=== PATIENT | female | born 1985 | race Caucasian/White ===

== ENCOUNTER 2018-07-11 07:46 | Emergency (ER) | payer OTHER ==
--- OUTSIDE RECORDS SUMMARY | 2018-07-11 07:53 | XMS REPORT | Continuity of Care Document ---
:1985 External Reference #:[id number] Author Name Kajal Luque M.D. Address [address] [place] [address] Care Team Providers Name Role Phone Kajal Luque M.D. Care Team Information Fine Hairer Unavailable Kajal Luque M.D. Primary Care Physician Unavailable Payers Date Identification Numbers Payment Provider Subscriber Effective: 2016 Policy Number: [id number] [place] [employer] Mervat Camacho Group Number: [id number] [address] PayID: [id number] [place] [address] Advance Directives Description No Information Available Problems Date Description Provider Status Onset: 07/05/2018 Allergic rhinitis due to pollen Kjaal Luque M.D. 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 needed Montelukast Active Tablets 10mg 30tabs take one Z00.00 Kajal Sodium 019 tablet by [place], mouth at M.D. bedtime Proair HFA Hx Aerosol 108(90Base) 8.500g 2 puffs R05 Kajal 019 - mcg/Act m every 4-6 [place], hours as M.D. 019 needed for cough No Active Hx Unknown Medications 017 - 017 Guaifenesin-Co Hx Solution 100-10mg/5M 120ml 5ml by R05 Shweta mixon 017 - L mouth at [facility], night CONVEX GRINDER 019 every 4-6 hours as needed for cough Proair HFA Hx Aerosol 108(90Base) 8.500g 2 puffs R05 Kajal 017 - mcg/Act m every 4-6 [place], hours as M.D. 019 needed for cough Prednisone Hx Tablets 10mg 39tabs 60 mg R05 Shweta Don 017 - first day Pace, and taper CONVEX GRINDER 019 down by 5mg (1/2 pill) per day for 12 days. Tessalon Hx Capsules 100mg 30caps take 2 R05 Shweta Mcguire 017 - tablets Pace, every 8 CONVEX GRINDER 019 hours during the day as needed for cough Immunizations Description No Information Available Vital Signs Date Vital Result Comment 07/05/2018 1:10pm BP Systolic 112 mmHg BP Diastolic 58 mmHg Heart Rate 68 /min Body Temperature 98.8 F Respiratory Rate 16 /min Height 63 inches 5'3" Weight 138.00 lb BMI (Body Mass Index) 24.4 kg/m2 02/25/2017 3:57pm BP Systolic 108 mmHg BP Diastolic 76 mmHg Heart Rate 96 /min Body Temperature 98.1 F Height 63 inches 5'3" Weight 143.12 lb BMI (Body Mass Index) 25.4 kg/m2 10/14/2016 3:15pm BP Systolic 110 mmHg BP Diastolic 62 mmHg Heart Rate 68 /min Body Temperature 99.0 F Respiratory Rate 16 /min Height 63 inches 5'3" Weight 138.00 lb BMI (Body Mass Index) 24.4 kg/m2 Results Test Date Facility Test Result H/L Range Note Age 0710/14/2016 [facility] Age 26-29 [address] [place] [address] [phone] - Diagn See Comment: 1 Adeq See Comment: 2 [email or web address] See Comment: 3 Perfor See Comment: 4 QC Rev See Comment: 5 Comm . Note See Comment: 6 Iglbp See Comment: 7 Reflex See Comment: 8 Laboratory test 10/14/2016 [facility] PDF [id number] SEE IMAGE finding [address] [place] [address] [phone] - Comprehensive 10/09/2016 [facility] Sodium 137 mEq/L 134-1 Metabolic Prof 49 Potassium 4.2 mEq/L 3.6-5.5 Chloride 102 mEq/L 94-112 Carbon Dioxide 24 mEq/L 21-32 Glucose 89 mg/dL 70-105 BUN 9 mg/dL 6-26 Creatinine 0.8 mg/dL 0.6-1.4 BUN/Creat Ratio 11.3 CALC 8.0-36.0 Calcium 8.6 mg/dL 8.6-10.2 Total Protein 6.6 g/dL 6.4-8.3 Albumin 4.1 g/dL 3.8-5.5 Globulin 2.5 g/dL 2.0-4.8 A/G Ratio 1.6 CALC 0.6-2.3 Alk. Phosphatase 51 U/L 30-110 Alt (SGPT) 18 U/L 7-35 Ast (Sgot) 37 U/L High 5-34 9 Total Bilirubin 0.8 mg/dL 0.2-1.3 GFR Non- >60 ml/min/1.73m^ >=60 GFR >60 ml/min/1.73m^ >=60 Lipid Profile 10/09/2016 [facility] Cholesterol 153 mg/dL 120-200 Triglycerides 32 mg/dL 30-200 HDL Cholesterol 59 mg/dL 30-85 LDL (Calculated) 88 CALC 0-129 VLDL Cholesterol 6 mg/dL 0-50 HDL Risk Factor 2.6 CALC 0.0-4.4 Laboratory test finding 10/09/2016 [facility] TSH 2.65 mIU/L 0.50- 6.00 CBC Manual Diff-[facility] 10/09/2016 [facility] WBC 3.7 3.6-9.6 10 (607)- - RBC 4.48 3.90-5.70 Hemoglobin (Fma/CMC/CTX) 13.2 g/dL 12.1 - 17.2 Hematocrit ([facility]ma/CMC/CTX) 39 % 36.1 - 50.3 Mean Corpuscular Vol 87 82.2-97.4 Mean Corpuscular Hemoglobin 29.6 27.6-33.3 Mean Corpuscular Hemo Concen 34 32.0-36.0 Platelets 345 10^3/ul 150-400 RDW 12.9 11.6-13.7 Mean Platelet Volume 6.6 5.5-11.0 Neutrophil 26 # Band 3 Lymphocytes 63 # Monocyte 6 Eosinophils 2 Z#Comment see result note 1 NEGATIVE FOR INTRAEPITHELIAL LESION AND MALIGNANCY. THIS SPECIMEN WAS RESCREENED PART OF OUR MANAGER PRIVACY PROGRAM. 2 Satisfactory for evaluation. Endocervical and/or squamous metaplastic cells (endocervical component) are present. 3 Z12.4 4 Hannah De La Cruz, Sales Relationship Manager (ASCP) 5 Danny Juarez, Sales Relationship Manager (ASCP) 6 The Pap smear is a screening test designed to aid in the detection of premalignant and malignant conditions of the uterine cervix. It is not a diagnostic procedure and should not be used as the sole means of detecting cervical cancer. Both false-positive and false-negative reports do occur. 7 This liquid based ThinPrep(R) pap test was screened with the use of an image guided system. 8 The HPV DNA reflex criteria were not met with this specimen result therefore, no HPV testing was performed. 9 RESULTS VERIFIED BY REPEAT ANALYSIS 10 Few ovalocytes Few ashley cells plts appear normal on smear Procedures Date Code Description Status 10/14/2016 [facility] Completed Encounters Type Date Location Provider Dx Diagnosis Office Visit 02/25/2017 4:[facility] Shweta Pace, KATI R05 Cough Plan of Treatment Future Appointment(s):07/16/2018 10:00 am - Kajal Luque M.D. at [id number] - Kajal Luque M.D.Z00.00 Encounter for general adult medical examination without abnoNew Medication:Montelukast Sodium 10 mg - take one tablet by mouth at bedtimeNew Labs:CBC Electronic ([facility] New), Ordered: 03/26/ 19CCS-Comp And Lipid ([facility]), Ordered: 07/05/18TSH ([facility]), Ordered: Comments:Encourage an active and healthy lifestyle with proper eating habits including fruits, vegetables, 6-8 glasses of water a day and monitoring portion size. Recommend 30 minutes of daily physical activityincluding walking, aerobic exercise, sports, yoga or dance. Any activity is better than no activity.Recommend routine eye and dental exams. Next physical is due in 1-2 years.J30.1 Allergic rhinitis due to pollenComments:trial of allergy medication for cough at least 2 weeks daily; Reviewed adverse side effects of medication. Advised to call the office if experiencing symptoms. Patient verbalized understanding. try dust mite covers vacuum bedding, carpets and curtains air [id number] CoughNew Medication:Proair HFA 108(90 Base) mcg/Act - 2 puffs every 4 hours as neededProair HFA 108(90 Base) mcg/Act - 2 puffs every 4-6 hours as needed for cpztqK89.129 Dry eye syndrome of unspecified lacrimal glandComments: sees eye with ointment daily ; advise fu with [id number] Sebaceous cystComments :discussed monitoring and when surgical removal necessary reviewed signs of infection, avoid [id number] Pain in unspecified footComments:rec biofreeze, stretching, soaks, pt request to see ortho/podiatry may need orthoticsAllComments:Medication Management Patient Understands medications she' s taking? Yes No Are there Barriers to Adherence? Yes No Has the patient been asked about herbal supplements and therapies, and OTC meds? Yes No
[2018-07-11 08:00] VITALS: BP 123/73
[2018-07-11 08:12] LABS: Influenza A Molecular POSITIVE (Negative)
--- NOTE | 2018-07-11 08:40 | UC ---
Respiratory Complaint HPI - HPI Summary HPI Summary: Ms. Camacho started with flu-like symptoms on Wednesday. She has allergies and a chronic cough but is coughing worse now. She C/O's diffuse myalgias and arthralgias. - History of Current Complaint Chief Complaint: UCGeneralIllness Stated Complaint: FLU LIKE SYMP Time Seen by Provider: 07/11/18 08:08 Hx Obtained From: Patient Hx Last Menstrual Period: 06/16/18 ?: No Onset/Duration: Gradual Onset Timing: Constant Severity Initially: Mild Severity Currently: Moderate Pain Intensity: 6 Character: Cough: Nonproductive Aggravating Factors: Nothing Alleviating Factors: Nothing Associated Signs And Symptoms: Positive: Fever, Chills, Nasal Congestion - Allergies/Home Medications Allergies/Adverse Reactions: Allergies Allergy/AdvReac Type Severity Reaction Status Date / Time No Known Allergies Allergy Verified 07/11/18 08:00 Home Medications: Home Medications Montelukast Sodium TAB* [Singulair 10 MG TAB*] 1 tab PO DAILY 07/11/18 [History Confirmed 07/11/18] PMH/Surg Hx/FS Hx/Imm Hx Previously Healthy: Yes - Surgical History Surgical History: None Surgery Procedure, Year, and Place: denies - Social History Alcohol Use: Occasionally Substance Use Type: None Smoking Status (MU): Never Smoked Tobacco Review of Systems All Other Systems Reviewed And Are Negative: Yes Constitutional: Positive: Fever, Chills Skin: Positive: Negative Eyes: Positive: Negative ENT: Positive: Sore Throat, Nasal Discharge Respiratory: Positive: Cough Is Patient Immunocompromised?: No Physical Exam - Summary Physical Exam Summary: She is non-toxic in appearance with stable vitals aside from a low grade fever. Triage Information Reviewed: Yes Appearance: Well-Appearing Vital Signs: Initial Vital Signs Temp 100.9 F 07/11/18 07:57 Pulse 84 07/11/18 07:57 Resp 20 07/11/18 07:57 BP 123/73 07/11/18 07:57 Pulse Ox 100 07/11/18 07:57 Vital Signs Reviewed: Yes ENT Exam: Normal Dental Exam: Normal Neck exam: Normal Respiratory Exam: Normal Cardiovascular Exam: Normal Abdominal Exam: Normal Bowel Sounds: Positive: Present Musculoskeletal Exam: Normal, Other - mild tenderness to stress her supraspinatus origin. mildy tender. Neurological Exam: Normal Psychological Exam: Normal Skin Exam: Normal Respiratory Course/Dx - Course Course Of Treatment: Ms. Camacho came in with URI symptoms of 1 1/2 days and was found to have influenza A. She slipped this AM and hit her right shoulder with mild tenderness. I recommended rest and possible sling. She says that she is going to be laying around with the flu and won't need a sling. She will F/u if needed. - Differential Dx/Diagnosis Provider Diagnosis: Influenza A Discharge - Sign-Out/Discharge Documenting (check all that apply): Patient Departure All imaging exams completed and their final reports reviewed: No Studies - Discharge Plan Condition: Stable Disposition: HOME Patient Education Materials: Influenza (ED) Forms: *Work Release Referrals: No Primary Care Phys,NOPCP [Primary Care Provider] - - Billing Disposition and Condition Condition: STABLE Disposition: Home
== END 2018-07-11 08:45 | disposition home or self-care (01) ==
LOC: UCEAST 07:46
DX: J11.1 Influenza due to unidentified influenza virus with other respiratory manifestations (principal)
CPT/HCPCS: 99212; G0463

== ENCOUNTER 2023-03-31 17:59 | Inpatient (IN) ==
[2023-03-31 18:52] VITALS: BP 107/63
[2023-03-31] MEDS ORDERED: Buffered Lidocaine 1% SYRIN 1 ml INTRADERM ONE (19:22)
[2023-03-31] MEDS ORDERED: Lactated Ringers 1000 ml BAG 1,000 ML IV ONE (19:22)
[2023-03-31] MEDS ORDERED: Lidocaine 1% VIAL 10 MG/ML 30 ML VIAL INJ PRN (19:22)
[2023-03-31] MEDS ORDERED: Dinoprostone 10 MG VAG.SUPP VAGINAL ONE (19:22)
[2023-03-31] MEDS ORDERED: Penicillin G Potassium IV 5,000,000 UNITS in NS 0.9% 100 ml BAG 100 ML IVPB ONE (19:22)
[2023-03-31] MEDS ORDERED: Promethazine INJ(RESTRICTED) 25 MG/ML 1 ml VIAL IV PRN (19:22)
[2023-03-31] MEDS ORDERED: Mometasone 220 MCG MDI INH SCH (21:00)
[2023-03-31 21:30] LABS: Urine Benzodiazepine Screen None Detected (None Detect); Urine Cannabinoids Screen None Detected (None Detect); Urine Opiates Screen None Detected (None Detect)
[2023-03-31] MEDS: Sodium Chloride 2% OPTH.SOL 15 ML BTL BOTH EYES SCH (22:09)
[2023-04-01] MEDS ORDERED: Penicillin G Potassium IV 3,000,000 UNITS in NS 0.9% 100 ml BAG 100 ML IVPB SCH
[2023-04-01] MEDS: BUDESONIDE INH SCH ×2 (10:01→21:32)
[2023-04-01] MEDS ORDERED: miSOPROStol 100 mcg TAB PO ONE ×3 (10:07→14:30)
[2023-04-01] MEDS ORDERED: Dinoprostone 10 MG VAG.SUPP VAGINAL ONE (21:03)
[2023-04-02] MEDS: Sodium Chloride 2% OPTH.SOL 15 ML BTL BOTH EYES SCH (00:45)
[2023-04-02] MEDS: BUDESONIDE INH SCH (09:42)
[2023-04-02] MEDS ORDERED: Ondansetron ODT 4 mg TAB 4 MG TAB SL PRN (13:38)
[2023-04-02] MEDS ORDERED: Oxytocin in LR 20,000 MILLI.UNIT/1,000 ML BAG IV SCH ×2 (15:40→16:05)
[2023-04-02 16:43] LABS: ABS Eosinophils 0.1 10^3/uL (0.0-0.5); ABS Lymphocytes 0.9 10^3/uL (1.0-4.8); ABS Monocytes 0.8 10^3/uL (0.0-0.9); ABS Neutrophils 7.3 10^3/uL (1.5-7.6); Eosinophil % 0.6 %; Hematocrit 33.2 % (35-45); Lymphocyte % 10.1 %; Mean Corpuscular Hemoglobin 30.9 pg (27-33); Mean Corpuscular Hgb Conc 33.1 g/dL (31-36); Mean Corpuscular Volume 93.2 fL (80-97); Mean Platelet Volume 6.9 fL (7.5-11.2); Platelet Count 310 10^3/uL (150-450); Red Blood Count 3.56 10^6/uL (3.63-4.92); Red Cell Distribution Width 16.9 % (12-17); White Blood Count 9.1 10^3/uL (3.8-11.8)
[2023-04-02 17:08] LABS: Albumin 3.7 g/dL (3.2-5.2); Albumin/Globulin Ratio 1.5 (1-3); Calcium 8.9 mg/dL (8.6-10.3); Creatinine, Serum 0.49 mg/dL (0.51-0.95); Globulin 2.5 g/dL (2-4); Total Bilirubin 0.7 mg/dL (0.2-1.0); Total Protein 6.2 g/dL (6.4-8.9); eGFR CKD-EPI 125.2 (>60)
[2023-04-02] MEDS: Lactated Ringers 1000 ml BAG 1,000 ML IV SCH ×2 (17:20→22:24)
[2023-04-02] MEDS ORDERED: BUDESONIDE INH SCH (21:00)
== END 2023-04-03 10:36 | disposition home or self-care (01) | DRG 833 ==
LOC: MCHOBOUT 17:59 → MCHOB 19:07
PROVIDERS: ADMIT Obstetrics & Gynecology; ATTEND Obstetrics & Gynecology

== ENCOUNTER 2023-04-22 14:01 | Inpatient (IN) ==
[2023-04-22] MEDS ORDERED: Lactated Ringers 1000 ml BAG 1,000 ML IV ONE (15:22)
[2023-04-22] MEDS ORDERED: Lidocaine 1% VIAL 10 MG/ML 30 ML VIAL INJ PRN (15:22)
[2023-04-22] MEDS ORDERED: Buffered Lidocaine 1% SYRIN 1 ml INTRADERM ONE (15:22)
[2023-04-22] MEDS ORDERED: miSOPROStol 100 mcg TAB VAGINAL ONE (15:27)
[2023-04-22 17:11] LABS: Urine Benzodiazepine Screen None Detected (None Detect); Urine Cannabinoids Screen None Detected (None Detect); Urine Opiates Screen None Detected (None Detect)
[2023-04-22] MEDS ORDERED: Dinoprostone 10 MG VAG.SUPP VAGINAL ONE (20:27)
[2023-04-22] MEDS: Calcium Carb (TUMS) 500 mg CHEW TAB PO PRN (21:42)
[2023-04-23] MEDS ORDERED: Oxytocin in LR 20,000 MILLI.UNIT/1,000 ML BAG IV SCH (12:00)
[2023-04-23] MEDS ORDERED: Penicillin G Potassium IV 5,000,000 UNITS in NS 0.9% 100 ml BAG 100 ML IVPB ONE (12:00)
[2023-04-23] MEDS ORDERED: Buffered Lidocaine 1% SYRIN 1 ml ONE (12:38)
[2023-04-23 13:17] LABS: ABS Lymphocytes 0.8 10^3/uL (1.0-4.8); ABS Monocytes 0.6 10^3/uL (0.0-0.9); ABS Neutrophils 6.3 10^3/uL (1.5-7.6); Eosinophil % 0.3 %; Hematocrit 33.2 % (35-45); Hemoglobin 11.2 g/dL (11.5-14.3); Mean Corpuscular Hemoglobin 30.5 pg (27-33); Mean Corpuscular Hgb Conc 33.6 g/dL (31-36); Mean Corpuscular Volume 90.8 fL (80-97); Mean Platelet Volume 7.3 fL (7.5-11.2); Platelet Count 329 10^3/uL (150-450); Red Blood Count 3.66 10^6/uL (3.63-4.92); Red Cell Distribution Width 15.2 % (12-17); White Blood Count 7.7 10^3/uL (3.8-11.8)
[2023-04-23] MEDS: Lactated Ringers 1000 ml BAG 1,000 ML IV SCH (14:00)
[2023-04-23] MEDS: Calcium Carb (TUMS) 500 mg CHEW TAB PO PRN (18:30)
[2023-04-23] MEDS: SODIUM CHLORIDE 5% BOTH EYES SCH (23:06)
[2023-04-23] MEDS: [UNRECOGNIZED DRUG - OTHER] BOTH EYES SCH (23:06)
[2023-04-23] MEDS: BUDESONIDE INH SCH (23:06)
[2023-04-24] MEDS ORDERED: Cholecalciferol (VIT D3) 1,000 unit TAB PO SCH (09:00)
[2023-04-24] MEDS ORDERED: miSOPROStol 100 mcg TAB PO ONE ×3 (09:11→17:10)
[2023-04-24] MEDS: BUDESONIDE INH SCH ×2 (09:37→22:24)
[2023-04-24] MEDS: Calcium Carb (TUMS) 500 mg CHEW TAB PO PRN (20:44)
[2023-04-24] MEDS ORDERED: Lidocaine 2% JELLY 6 ML Topical TOPICAL ONE (22:03)
[2023-04-24] MEDS ORDERED: Dinoprostone 10 MG VAG.SUPP VAGINAL ONE (22:03)
[2023-04-24] MEDS: SODIUM CHLORIDE 5% BOTH EYES SCH (22:24)
[2023-04-24] MEDS: [UNRECOGNIZED DRUG - OTHER] BOTH EYES SCH (22:24)
[2023-04-25] MEDS: Cholecalciferol (VIT D3) 1,000 unit TAB PO SCH (08:31)
[2023-04-25] MEDS: BUDESONIDE INH SCH ×2 (08:32→22:30)
[2023-04-25] MEDS: Lactated Ringers 1000 ml BAG 1,000 ML IV SCH (09:03)
[2023-04-25] MEDS: Oxytocin in LR 20,000 MILLI.UNIT/1,000 ML BAG IV SCH (09:04)
[2023-04-25] MEDS ORDERED: Lidocaine 2% JELLY 6 ML Topical TOPICAL ONE (17:51)
[2023-04-25] MEDS: [UNRECOGNIZED DRUG - OTHER] BOTH EYES SCH (22:30)
[2023-04-25] MEDS: SODIUM CHLORIDE 5% BOTH EYES SCH (22:30)
[2023-04-26] MEDS: Ondansetron 4 mg VIAL 2 MG/ML 2 ml VIAL IV PRN ×2 (00:55→13:09)
[2023-04-26] MEDS: Oxytocin in LR 20,000 MILLI.UNIT/1,000 ML BAG IV SCH ×2 (03:49→18:37)
[2023-04-26] MEDS: Lactated Ringers 1000 ml BAG 1,000 ML IV SCH ×3 (03:50→20:05)
[2023-04-26 04:33] LABS: Hematocrit 31.7 % (35-45); Hemoglobin 10.8 g/dL (11.5-14.3); Mean Corpuscular Hemoglobin 31.1 pg (27-33); Mean Corpuscular Hgb Conc 34.1 g/dL (31-36); Mean Corpuscular Volume 91.2 fL (80-97); Mean Platelet Volume 7.3 fL (7.5-11.2); Platelet Count 287 10^3/uL (150-450); Red Blood Count 3.47 10^6/uL (3.63-4.92); White Blood Count 8.1 10^3/uL (3.8-11.8)
[2023-04-26] MEDS ORDERED: Penicillin G Potassium IV 3,000,000 UNITS in NS 0.9% 100 ml BAG 100 ML IVPB SCH (05:00)
[2023-04-26] MEDS: Penicillin G Potassium IV 3,000,000 UNITS in NS 0.9% 100 ml BAG 100 ML IVPB SCH ×4 (05:32→18:03)
[2023-04-26] MEDS ORDERED: OBEPIDURAL (200 ML) 200 ML EPIDURAL ONE (07:16)
[2023-04-26] MEDS ORDERED: Lidocaine 1.5% EPI 1:200,000 30 ML SDV ONE (07:16)
[2023-04-26] MEDS ORDERED: Lactated Ringers 1000 ml BAG 500 ML IV PRN ×2 (08:13)
[2023-04-26] MEDS ORDERED: Lactated Ringers 1000 ml BAG 1,000 ML IV ONE (08:13)
[2023-04-26] MEDS ORDERED: Sodium Citrate/Citric Acid LIQ 15 ML UDC PO PRN (08:13)
[2023-04-26] MEDS ORDERED: Phenylephrine 40 mcg/mL 10mL (400mcg) SYRINGE IV PUSH PRN ×2 (08:13)
[2023-04-26] MEDS ORDERED: OBEPIDURAL (200 ML) 200 ML EPIDURAL SCH (09:00)
[2023-04-26] MEDS ORDERED: Lactated Ringers 1000 ml BAG 1,000 ML IV SCH (09:00)
[2023-04-26] MEDS: BUDESONIDE INH SCH (09:35)
[2023-04-26] MEDS: Cholecalciferol (VIT D3) 1,000 unit TAB PO SCH (09:35)
[2023-04-26 10:51] LABS: Urine Appearance Clear; Urine Bacteria Absent (Absent); Urine Bilirubin Negative (Negative); Urine Blood Negative (Negative); Urine Color Yellow; Urine Glucose Negative (Negative); Urine Ketones 1+ (Negative); Urine Nitrite Negative (Negative); Urine Protein Negative (Negative); Urine Red Blood Cell Trace(0-2/hpf) (Absent); Urine Specific Gravity 1.013 (1.002-1.030); Urine Squamous Epithelial Cell Present (Absent); Urine Transitional Epithelial Present (Absent); Urine Urobilinogen Negative (Negative); Urine White Blood Cell Trace(0-5/hpf) (Absent)
[2023-04-27] MEDS ORDERED: Glycerin ADULT 2.4 gm SUPP PR PRN (00:39)
[2023-04-27] MEDS ORDERED: Dibucaine 1% OINT 28.35 GM TUBE PR PRN (00:39)
[2023-04-27] MEDS ORDERED: Witch Hazel PAD JAR TOPICAL PRN (00:39)
[2023-04-27] MEDS: Oxytocin in LR 20,000 MILLI.UNIT/1,000 ML BAG IV SCH ×2 (00:48→04:39)
[2023-04-27] MEDS ORDERED: Lactated Ringers 1000 ml BAG 1,000 ML IV SCH (01:00)
[2023-04-27] MEDS: [UNRECOGNIZED DRUG - OTHER] BOTH EYES SCH (04:53)
[2023-04-27] MEDS: SODIUM CHLORIDE 5% BOTH EYES SCH (04:53)
[2023-04-27] MEDS: Penicillin G Potassium IV 3,000,000 UNITS in NS 0.9% 100 ml BAG 100 ML IVPB SCH (04:55)
[2023-04-27] MEDS: BUDESONIDE INH SCH ×3 (07:06→21:00)
[2023-04-27] MEDS: Calcium Carb (TUMS) 500 mg CHEW TAB PO PRN (09:17)
[2023-04-27 09:29] LABS: ABS Basophils 0.1 10^3/uL (0.0-0.1); ABS Lymphocytes 1.1 10^3/uL (1.0-4.8); ABS Monocytes 0.7 10^3/uL (0.0-0.9); ABS Neutrophils 11.2 10^3/uL (1.5-7.6); ABS Nucleated RBC 0.01 10^3/ul; Eosinophil % 0.1 %; Hematocrit 29.1 % (35-45); Hemoglobin 9.7 g/dL (11.5-14.3); Lymphocyte % 8.5 %; Mean Corpuscular Hemoglobin 30.5 pg (27-33); Mean Corpuscular Hgb Conc 33.4 g/dL (31-36); Mean Corpuscular Volume 91.1 fL (80-97); Mean Platelet Volume 7.1 fL (7.5-11.2); Nucleated Red Blood Cells % 0.1 %/100WBC (0.0-0.8); Platelet Count 267 10^3/uL (150-450); Red Blood Count 3.19 10^6/uL (3.63-4.92); Red Cell Distribution Width 14.8 % (12-17); White Blood Count 13.1 10^3/uL (3.8-11.8)
[2023-04-27] MEDS: Cholecalciferol (VIT D3) 1,000 unit TAB PO SCH (12:01)
[2023-04-28] MEDS: SODIUM CHLORIDE 5% BOTH EYES SCH (01:27)
[2023-04-28] MEDS: [UNRECOGNIZED DRUG - OTHER] BOTH EYES SCH (01:27)
[2023-04-28 07:57] VITALS: BP 107/70
[2023-04-28] MEDS: BUDESONIDE INH SCH (08:55)
[2023-04-28] MEDS: Cholecalciferol (VIT D3) 1,000 unit TAB PO SCH (10:47)
== END 2023-04-28 17:45 | disposition home or self-care (01) | DRG 560 ==
LOC: MCHOBOUT 14:01 → MCHOB 15:26
PROVIDERS: ADMIT Midwife; ATTEND Midwife